=== PATIENT | female | born 2000 | race African-American/Black ===

== ENCOUNTER 2024-08-26 14:54 | Outpatient (CLI) | payer OTHER | END 2024-08-26 14:55 | disposition home or self-care (01) | LOC: CSHULT 14:54 | PROVIDERS: ATTEND Obstetrics & Gynecology | DX: N93.9 Abnormal uterine and vaginal bleeding, unspecified (principal); R93.89 Abnormal findings on diagnostic imaging of other specified body structures; N83.02 Follicular cyst of left ovary; N83.01 Follicular cyst of right ovary; R19.09 Other intra-abdominal and pelvic swelling, mass and lump | CPT/HCPCS: 76856 ==